=== PATIENT | female | born 1980 | race Caucasian/White ===

== ENCOUNTER 2017-02-14 17:28 | Emergency (ER) | payer OTHER ==
[~2017-02-14] VITALS: Ht 162.6 cm; Wt 66.4 kg
[~2017-02-14 17:28] MED LIST: ALPRAZOLAM ER1 MG PO; LATUDA20 MG PO; LUNESTA2 MG PO; NIFEDIPINE ER30 MG PO; POLYTRIM EYE DR10 ML LEFT EYE; STADOL NASAL2.5 ML NS; TRILEPTAL75 MG PO; TROKENDI XR25 MG PO; ULTRAM50 MG PO; VENTOLIN HFA18 GM IH; VISTARIL25 MG PO; ZOFRAN ODT4 MG PO; ZOLOFT100 MG PO; ZOLOFT25 MG PO
[2017-02-14] MEDS ORDERED: NAPROSYN500 MG PO (19:55)
[2017-02-14] MEDS ORDERED: ACULAR 0.5100 DROP/5 RIGHT EYE (19:55)
[2017-02-14 20:14] LABS: HEMATOCRIT 40.6 % (36.0-46.0); MCH 27.7 PG (29.0-34.0); MCV 83.9 FL (83-99); MEAN PLAT.VOLUME 10.3 uM^3 (9.5-12.4); PLATELET COUNT 224 K/uL (156-360); RBC DIS.WIDTH-CV 13.5 % (11.8-14.6); RBC DIS.WIDTH-SD 41.9 % (39-53); RED BLOOD COUNT 4.84 M/uL (3.80-5.20); WHITE BLOOD COUNT 8.7 K/uL (4.1-10.2)
[2017-02-14 20:19] VITALS: BP 107/94
[2017-02-14 20:32] LABS: CHLORIDE 107 mEq/L (99-109); SODIUM 138 mEq/L (136-147)
[2017-02-14 20:34] LABS: GLUCOSE 89 mg/dL (70-99)
[2017-02-14 20:36] LABS: ANION GAP 8 MEQ/L (2-14); TOTAL BILIRUBIN 0.4 mg/dL (0.0-1.0)
[2017-02-14 20:38] LABS: ALKALINE PHOSPHATASE 57 IU/L (3-129); GFR ESTIMATE (CALCULATED) > 59 mL/min/
[2017-02-14 20:39] LABS: UREA NITROGEN (BUN) 8 mg/dL (9-23)
[2017-02-14 21:20] LABS: ERTH.SED.RATE 18 MM/HR (0-20)
[2017-02-14 22:32] LABS: C-REACTIVE PROTEIN 1.9 MG/L (0-10)
[2017-02-15 08:49] LABS: LYME DISEASE SEROLOGY SCREEN NEGATIVE (NEGATIVE); TREPONEMA ANTIBODY NEGATIVE (NEGATIVE)
[2017-02-17 13:26] LABS: ANTI-NUCLEAR AB SCRN/RFLX(ANA) NONREACTIVE (NONREACTIVE)
[2017-02-17 22:53] LABS: Neutrophil Cytoplasmic Aby Negative (Negative)
== END 2017-02-14 20:22 | disposition home or self-care (01) ==
LOC: EME 17:28
PROVIDERS: Physician Assistant
DX: H15.001 Unspecified scleritis, right eye (principal)
CPT/HCPCS: 80053; 82164 90; 84443; 85027; 85651; 86021 90; 86038; 86140; 86147 90; 86235; 86430; 86618; 86780; 99281; 99284

== ENCOUNTER 2017-08-15 10:42 | Day surgery (SDC) | payer OTHER ==
[~2017-08-15] VITALS: Ht 162.6 cm; Wt 59.0 kg
[~2017-08-15 10:42] MED LIST changes: +ACULAR 0.5100 DROP/5 RIGHT EYE; +NAPROSYN500 MG PO
[2017-08-15 11:11] VITALS: BP 108/66
[2017-08-15] MEDS ORDERED: IBUPROFEN800 MG PO (13:39)
[2017-08-15 14:56] VITALS: BP 123/75
[2017-08-15 15:56] VITALS: BP 125/71
== END 2017-08-15 16:05 | disposition home or self-care (01) ==
LOC: SDC 10:42
PROC: 0UL74CZ Occlusion of Bilateral Fallopian Tubes with Extraluminal Device, Percutaneous Endoscopic Approach (ICD-10-PCS; principal; 2017-08-15)
DX: Z30.2 Encounter for sterilization (principal); N83.291 Other ovarian cyst, right side; J45.20 Mild intermittent asthma, uncomplicated; K58.1 Irritable bowel syndrome with constipation; G43.909 Migraine, unspecified, not intractable, without status migrainosus; E04.1 Nontoxic single thyroid nodule; F17.210 Nicotine dependence, cigarettes, uncomplicated; F32.9 Major depressive disorder, single episode, unspecified; Z83.3 Family history of diabetes mellitus; Z82.49 Family history of ischemic heart disease and other diseases of the circulatory system; Z83.49 Family history of other endocrine, nutritional and metabolic diseases
CPT/HCPCS: J0330; J1100; J1170; J1885; J2250; J2405; J2710; J3010

== ENCOUNTER 2017-08-17 11:47 | Emergency (ER) | payer OTHER ==
[~2017-08-17] VITALS: Ht 162.6 cm; Wt 65.0 kg
[~2017-08-17 11:47] MED LIST changes: +IBUPROFEN800 MG PO
[2017-08-17 12:29] LABS: HEMATOCRIT 37.3 % (36.0-46.0); MCH 27.3 PG (29.0-34.0); MCV 82.7 FL (83-99); MEAN PLAT.VOLUME 11.3 uM^3 (9.5-12.4); PLATELET COUNT 189 K/uL (156-360); RBC DIS.WIDTH-CV 14.3 % (11.8-14.6); RBC DIS.WIDTH-SD 43.1 % (39-53); RED BLOOD COUNT 4.51 M/uL (3.80-5.20); WHITE BLOOD COUNT 8.4 K/uL (4.1-10.2)
[2017-08-17 12:44] LABS: CHLORIDE 106 mEq/L (99-109); POTASSIUM 4.1 mEq/L (3.7-5.4); SODIUM 141 mEq/L (136-147)
[2017-08-17 12:46] LABS: GLUCOSE 79 mg/dL (70-99)
[2017-08-17 12:47] LABS: ANION GAP 11 MEQ/L (2-14)
[2017-08-17 12:50] LABS: GFR ESTIMATE (CALCULATED) > 59 mL/min/
[2017-08-17 12:51] LABS: UREA NITROGEN (BUN) 10 mg/dL (9-23)
[2017-08-17 12:54] LABS: TROP-I INTERPRETATION NEGATIVE; TROPONIN-I < 0.01 ng/mL (0.0-0.30)
[2017-08-17] MEDS ORDERED: PERCOCET 5/31 TABLET PO (15:17)
[2017-08-17 15:26] VITALS: BP 119/78
== END 2017-08-17 15:30 | disposition home or self-care (01) ==
LOC: EME 11:47
DX: G89.18 Other acute postprocedural pain (principal); R10.9 Unspecified abdominal pain; R07.9 Chest pain, unspecified; M54.9 Dorsalgia, unspecified; M25.519 Pain in unspecified shoulder; Z98.51 Tubal ligation status; I10 Essential (primary) hypertension; J45.909 Unspecified asthma, uncomplicated; F17.200 Nicotine dependence, unspecified, uncomplicated
CPT/HCPCS: 71020; 74177; 80048; 84484; 85027; 93005; 99281; 99285; J2270; J7040